=== PATIENT | male | born 1950 | race Caucasian/White ===

== ENCOUNTER 2020-12-06 07:28 | Day surgery (SDC) | payer MEDICARE ==
[2020-11-29 11:14] LABS: BASOPHILS % (AUTO) 0.4 % (0.0-5.0); EOSINOPHILS % (AUTO) 1.5 % (0.0-8.0); HEMATOCRIT 45.8 % (42-54); LYMPHOCYTES % (AUTO) 29.7 % (21.0-51.0); MEAN CORPUSCULAR HGB CONC 33.2 g/dL (32.0-36.0); MEAN CORPUSCULAR VOLUME 93.5 fL (79-99); MONOCYTES % (AUTO) 8.7 % (3.0-13.0); NEUTROPHILS % (AUTO) 59.5 % (40.0-77.0); PLATELET COUNT (AUTO) 136 K/uL (130-400); RED CELL DISTRIBUTION WIDTH 12.2 % (11.0-15.5); WHITE BLOOD COUNT (AUTO) 5.2 K/uL (4.8-10.8)
[2020-11-29 11:22] LABS: CREATININE 0.8 mg/dL (0.5-1.5); POTASSIUM 4.1 mmol/L (3.5-5.1)
[2020-12-03 13:15] VITALS: BP 144/84
[2020-12-03 13:27] VITALS: BP 144/84
[2020-12-06] VITALS (13 sets, daily range): BP systolic 140–155; BP diastolic 81–89
[~2020-12-06] VITALS: Ht 177.8 cm; Wt 81.6 kg
[2020-12-06] MEDS ORDERED: CEFAZOLIN SODIUM 1 GM VIAL IVP ONE (08:00)
[2020-12-06] MEDS ORDERED: SODIUM CHLORIDE 0.9% 1000ML 1,000 ML IV SCH (08:00)
[2020-12-06] MEDS ORDERED: LACTATED RINGERS 1000ML 1,000 ML IV ONE (08:16)
[2020-12-06] MEDS ORDERED: OCTYL 2-CYANOACRYLATE 1 EACH TP ONE (10:17)
[2020-12-06] MEDS ORDERED: BUPIVACAINE/PF 0.5% 30ML VIAL ONE (10:17)
[2020-12-06] MEDS ORDERED: LIDOCAINE HCL MPF 1% 5ML VIAL ONE (10:19)
[2020-12-06] MEDS ORDERED: FENTANYL CITRATE PF 50 MCG/1 ML 2ML VIAL ONE ×2 (10:19→11:42)
[2020-12-06] MEDS ORDERED: ROCURONIUM 10MG/1ML SYR 10 MG/ML ML ONE ×2 (10:19→12:18)
[2020-12-06] MEDS ORDERED: PROPOFOL 10 MG/ML 20ML VIAL IV ONE (10:19)
[2020-12-06] MEDS ORDERED: ONDANSETRON HCL 4 MG/2 ML VIAL ONE (10:19)
[2020-12-06] MEDS ORDERED: MIDAZOLAM HCL 1 MG/ML 2ML VIAL ONE (10:21)
[2020-12-06] MEDS ORDERED: METHYLENE BLUE 5 MG/ML AMP ONE (12:02)
[2020-12-06] MEDS ORDERED: MEPERIDINE-PF 25 MG/ML SYG ONE ×3 (12:26→13:19)
[2020-12-06] MEDS ORDERED: GLYCOPYRROLATE 1 MG/5 ML SYRINGE ONE (12:27)
[2020-12-06] MEDS ORDERED: NEOSTIGMINE 5MG/5ML SYR IV ONE (12:27)
== END 2020-12-06 15:00 | disposition home or self-care (01) ==
LOC: DAH 07:28
PROVIDERS: ATTEND Surgery
DX: K40.90 Unilateral inguinal hernia, without obstruction or gangrene, not specified as recurrent (principal); Z20.822 Contact with and (suspected) exposure to COVID-19; S37.23XA Laceration of bladder, initial encounter; Z82.49 Family history of ischemic heart disease and other diseases of the circulatory system; Z87.891 Personal history of nicotine dependence; Z79.899 Other long term (current) drug therapy; Z98.890 Other specified postprocedural states; X58.XXXA Exposure to other specified factors, initial encounter
CPT/HCPCS: 36415; 49650; 80048; 85025; 87635; 93005; A4215; A4221; A4222; A4223; A4344; A6260; C1769; C1781; C9803; G0168; J0690; J2175 ×3; J2250; J2405; J2704; J2710; J3010 ×2; J3490 ×3; J7030; J7120 ×2; Q9968

== ENCOUNTER → 2020-12-09 | Outpatient (CLI) | payer MEDICARE | END | disposition home or self-care (01) | LOC: RAH 09:12 | PROVIDERS: ATTEND Surgery | DX: N39.0 Urinary tract infection, site not specified (principal) | CPT/HCPCS: 74430; Q9958 ==